=== PATIENT | female | born 1955 | race Caucasian/White ===

== ENCOUNTER → 2024-05-30 | Outpatient (CLI) | payer MEDICARE, BC ==
[~2024-05-30] VITALS: Ht 165.1 cm; Wt 70.0 kg
[~2024-05-30] MED LIST: CALCIUM CITRAT200 M2; COLESTID 1GM1 G PO; COZAAR 50MG50 MG/TAB PO; CYMBALTA 60MG60 MG PO; DIABETA 5MG5 MG/TAB PO; GLUCOPHAGE XR500 M1 PO; GLUCOPHAGE1000 MG PO; GLUCOTROL XL10 MG PO; GLUCOTROL10 MG PO; KRILL OIL 1,001 EAC1 PO; NATURAL POTASS595 MG; OZEMPIC1 MG/0.71 SQ; PROBIOTIC BLEN1 EACH PO; PROTONIX 40MG T40 MG PO; SYNTHROID0.05 MG/TA PO; TIROSINT50 MC1 PO; TRESIBA FL100 UNIT/1 SQ; Triamcinolone 40 MG/ML 1 ML VIAL IJ SCH; VICTOZA6 MG/ML SQ; VITAMIN B COMPL1 T16 PO; VITAMIN K0.1 MG; VITAMIND3 5000 PO; [UNRECOGNIZED DRUG - OTHER] PO
[2024-05-30 08:10] VITALS: BP 149/51; PULSE 84; TEMP 97.8
[2024-05-30 09:10] VITALS: BP 164/83; PULSE 79
== END ==
LOC: COL.RAD 07:54
DX: M54.16 Radiculopathy, lumbar region (principal)
CPT/HCPCS: J0665; J3301